=== PATIENT | female | born 1995 | race American Indian/Alaskan Native ===

== ENCOUNTER 2018-05-10 13:42 | Emergency (ER) | payer MEDICAID, OTHER ==
[2018-05-10 14:52] VITALS: BMI 24.7
--- NOTE | 2018-05-10 16:37 | OBHP ---
Datetime: 05/10/2018 15:01 IP Adm Impression: , intrauterine IP Admit Plan: Discharge home Admit Comment, IP Provider: HPI: Greg is a 22 yo G1 at 36.3 who presents to triage for evaluation of pelvic discomfort. She had an office visit this morning around 9am and had a cervical exam after she had complained of some tightening in her abdomen the night before. She reports a dilation of 2cm. Once she arrived at home she began having a constant pelvic pain and discomfort in the vagina and re ctum that is still present. Denies contractions, LOF or vaginal bleeding. She was unsure if she was i n labor and came for evaluation. ROS: as above, otherwise negative problems Denies PMH Denies PSH Denies Medications PNV Allergies NKDA Social Denies tobacco, alcohol or drug use OBJECTIVE See exam section Vaginal exam deferred labs unavailable Assessment/Plan: 22yo G1 at 36.3 weeks here with pelvic discomfort after a cervical exam earlier i n the day. She denies any current contractions and her pelvic pain is mild and constant, which is unl ikely to be related to labor. We did turkey picker contractions on toco but she wasn't feeling them. Given that her discomfort and uterine irritability was likely form her exam earlier today a vaginal exam wa s not repeated. She was given tylenol for pain relief and sent home with discharge instructions. All questions were answered and she was in agreement with the plan. She had a f/u appt next week. Francheska Carreon MD OB Fellow The patient was seen with the resident I agree with the note Abdomen - PN: Normal Lungs - PN: Normal Heart - PN: Normal HEENT - PN: Normal General - PN: Normal IP Fetus A Comments: Reactive NST FHR - Baseline A Provider: 120 Contraction Comments Provider: Q7-8 min Gestation - Est Wks by US: 36.3 EGA AdmitDate IP: 36.3 Vital Signs Provider: Reviewed; Within Normal Limits IP Chief Complaint: Uterine contractions NICHD Variability Prov Fetus A: Moderate 6-25bpm NICHD Accel Fetus A IP Provider: [id number] NICHD Decel Fetus A IP Provider: None Dilatation, Provider: NA
[2018-05-10 19:27] VITALS: BP 110/66; PULSE 88; RESP 18; TEMP 98.3; O2SAT 99
== END 2018-05-10 15:20 | disposition home or self-care (01) ==
LOC: H.EROB2 13:42
DX: O26.93 Pregnancy related conditions, unspecified, third trimester (principal); R10.2 Pelvic and perineal pain; Z3A.36 36 weeks gestation of pregnancy